=== PATIENT | female | born 1990 | race Caucasian/White ===

== ENCOUNTER 2019-07-22 20:41 | Emergency (ER) | payer MEDICAID ==
[~2019-07-22] VITALS: Ht 157.5 cm; Wt 92.5 kg
[2019-07-22 20:45] VITALS: BP 133/73
--- NOTE | 2019-07-22 20:45 | NUR ---
TO BED # 11 AMBULATORY
[2019-07-22] MEDS ORDERED: KETOROLAC 60 MG/2 ML VIAL IM ONE (21:00)
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
[2019-07-22 21:55] VITALS: BP 133/73
--- NOTE | 2019-07-22 21:55 | NUR ---
Patient discharged with v/s stable. Written and verbal after care instructions given and explained. Patient alert, oriented and verbalized understanding of instructions. Ambulatory with steady gait. All questions addressed prior to discharge. ID band removed. Patient advised to follow up with PMD. Rx of Motrin and Kent given. Patient educated on indication of medication including possible reaction and side effects. Opportunity to ask questions provided and answered.
== END 2019-07-22 21:55 | disposition home or self-care (01) ==
LOC: MED 20:41
DX: M54.5 Low back pain (principal); R11.0 Nausea; J45.909 Unspecified asthma, uncomplicated; V89.2XXA Person injured in unspecified motor-vehicle accident, traffic, initial encounter; Y93.89 Activity, other specified; Y92.89 Other specified places as the place of occurrence of the external cause; Y99.8 Other external cause status
CPT/HCPCS: 96372; 99283; J1885